=== PATIENT | female | born 1990 | race Caucasian/White ===

== ENCOUNTER 2018-12-09 16:50 | Emergency (ER) | payer OTHER ==
[2018-12-09 17:01] VITALS: BP 152/105
--- NOTE | 2018-12-09 17:32 | ED Physician Documentation ---
PD HPI SKIN - Stated complaint Stated Complaint: RASH - Chief complaint Chief Complaint: Wound - History obtained from History obtained from: Patient - History of Present Illness Timing - onset: Yesterday Timing - details: Abrupt onset (increase since yesterday of red itchy bumps left forearm proximal to upper arm. No diffuse pattern. No pustules nor vesicles. bumps are red without flat top but are pointed centers. not pustular.) Review of Systems Constitutional: denies: Fever, Chills, Myalgias GI: denies: Nausea, Vomiting, Diarrhea Skin: reports: Rash, Lesions PD PAST MEDICAL HISTORY - Past Medical History Past Medical History: No Cardiovascular: None Respiratory: None Neuro: None Endocrine/Autoimmune: None - Past Surgical History Past Surgical History: Yes - Present Medications Home Medications: Ambulatory Orders Medication Instructions Recorded Confirmed Doxycycline Hyclate 100 mg PO BID #20 capsule 12/09/18 Mupirocin 1 applic TP TID #15 g 12/09/18 diphenhydrAMINE [Benadryl] 25 mg PO Q4-6H PRN #20 capsule 12/09/18 - Allergies Allergies/Adverse Reactions: Allergies Allergy/AdvReac Type Severity Reaction Status Date / Time No Known Drug Allergies Allergy Verified 12/09/18 17:00 - Social History Does the pt smoke?: No Smoking Status: Never smoker - Immunizations Immunizations are current?: Yes PD ED PE NORMAL - Vitals Vital signs reviewed: Yes - General General: Alert and oriented X 3, No acute distress, Well developed/nourished - Neck Neck: Supple, no meningeal sign, No adenopathy - Cardiac Cardiac: RRR, No murmur - Respiratory Respiratory: Clear bilaterally - Derm Derm: Normal color, Warm and dry - Extremities Extremities: Other (left arm with red bumps above recent topical ointment use at recent tattoo. Got tattoo on left forearm few days ago. Was using A&D ointment to the tattoo. Has some scaling at the tattoo. Had not used that ointment before. now with red bumps just proximal to the tattoo and expanding proximally. Itchy bumps without pustules nor drainage. ) Results - Vitals Vitals: Oxygen O2 Source Room air PD MEDICAL DECISION MAKING - ED course Complexity details: considered differential (rash is itchy but continues to spread and has appearance of follicles redness and swelling without pustules nor abscesses. ), d/w patient Departure - Departure Disposition: 01 Home, Self Care Clinical Impression: Infectious folliculitis Condition: Stable Record reviewed to determine appropriate education?: Yes Instructions: ED Folliculitis Follow-Up: [facility] Mccormick [Provider Group] Prescriptions: diphenhydrAMINE [Benadryl] 25 mg PO Q4-6H PRN #20 capsule PRN Reason: Itching Doxycycline Hyclate 100 mg PO BID #20 capsule Mupirocin 1 applic TP TID #15 g Comments: Cleanse the area with soap and water gently. Apply mupirocin topical antibiotic to the main inflamed follicles area. Take oral doxycycline antibiotic twice a day for a week. You can use Benadryl if needed for itchiness every 4-6 hours. I think this looks more like an infectious folliculitis. It is potentially possible to be local allergy response and so the Benadryl and the dose of steroids we gave you here would help with that. Recheck if not improved over the next several days and return or recheck if this continues to spread. Discharge Date/Time: 12/09/18 18:16
[2018-12-09] MEDS ORDERED: CETIRIZINE 10 MG TABLET PO STA (17:43)
[2018-12-09] MEDS ORDERED: MUPIROCIN 2% OINT 1 GM TOP STA (17:43)
[2018-12-09] MEDS ORDERED: DOXYCYCLINE 100 MG TABLET PO STA (17:43)
[2018-12-09] MEDS ORDERED: DEXAMETHASONE 10 MG/ML VIAL PO STA (17:43)
[2018-12-09] MEDS ORDERED: CETIRIZINE 10 MG TABLET ONE (18:12)
== END 2018-12-09 18:16 | disposition home or self-care (01) ==
LOC: ED 16:50
DX: L73.8 Other specified follicular disorders (principal)
CPT/HCPCS: 99283; A9270

== ENCOUNTER 2019-12-11 16:57 | Emergency (ER) | payer OTHER ==
[2019-12-11 17:32] VITALS: BP 156/92
== END 2019-12-11 18:33 | disposition left against medical advice (07) ==
LOC: ED 16:57
DX: Z53.21 Procedure and treatment not carried out due to patient leaving prior to being seen by health care provider (principal)

== ENCOUNTER 2020-09-23 12:11 | Emergency (ER) | payer OTHER ==
[2020-09-23 12:18] VITALS: BP 160/90
--- NOTE | 2020-09-23 12:28 | ED Physician Documentation ---
History of Present Illness - Stated complaint Stated Complaint: SWOLLEN RT HAND, PAIN IN RT HAND - Chief complaint Chief Complaint: Ext Problem - History obtained from History obtained from: Patient - History of Present Illness Timing: How many days ago (3) - Additonal information Additional information: 30-year-old female presents to the emergency department with 3 days of right hand pain. She accidentally dropped a 30 pound kettle chavez on the hand. She has no deformity but has had persistent pain since. She does have some generalized ecchymosis on the dorsum of the hand. Patient is right-handed. No history of previous injury Review of Systems Constitutional: reports: Reviewed and negative Ears: reports: Reviewed and negative Nose: reports: Reviewed and negative Throat: reports: Reviewed and negative Cardiac: reports: Reviewed and negative Respiratory: reports: Reviewed and negative GI: reports: Reviewed and negative : reports: Reviewed and negative Skin: reports: Reviewed and negative Musculoskeletal: reports: Extremity pain (right hand) PD PAST MEDICAL HISTORY - Past Medical History Past Medical History: Yes Cardiovascular: None Respiratory: None Neuro: None Endocrine/Autoimmune: None - Past Surgical History Past Surgical History: Yes - Present Medications Home Medications: Ambulatory Orders Medication Instructions Recorded Confirmed Doxycycline Hyclate 100 mg PO BID #20 capsule 12/09/18 Mupirocin 1 applic TP TID #15 g 12/09/18 diphenhydrAMINE [Benadryl] 25 mg PO Q4-6H PRN #20 capsule 12/09/18 - Allergies Allergies/Adverse Reactions: Allergies Allergy/AdvReac Type Severity Reaction Status Date / Time No Known Drug Allergies Allergy Verified 09/23/20 12:14 - Social History Does the pt smoke?: No Smoking Status: Never smoker Does the pt drink ETOH?: No Does the pt have substance abuse?: No - Immunizations Immunizations are current?: Yes - POLST Patient has POLST: No PD ED PE EXPANDED - Extremities Extremities: Right hand (No swelling of the right hand though ecchymosis is present on the dorsum of the hand. 2+ distal radial pulse. Normal grasp and flexion and extension of hand and wrist against resistance. No deformity. Generalized tenderness of the metacarpals especially over the distal 3,4,5th) Results - Vitals Vitals: Vital Signs - 24 hr 09/23/20 12:14 Temperature 36.5 C Heart Rate 86 Respiratory 16 Rate Blood Pressure 160/90 H O2 Saturation 98 Oxygen O2 Source Room air - Rads (name of study) right hand Radiology: Final report received (No acute fracture or dislocation) PD MEDICAL DECISION MAKING - ED course Complexity details: reviewed results, re-evaluated patient, d/w patient ED course: 30 -year-old female presents to the emergency department for evaluation of acute right hand pain when she dropped a 30 pound kettle chavez on it 3 days ago. She has a very reassuring hand exam with the exception of some mild tenderness and ecchymosis on the dorsum. X-ray does not reveal any acute fractures or breaks. Patient was advised to ice the hand and continue to take an NSAID medication like ibuprofen. No work restrictions are necessary given normal movement and function. Emergent return precautions discussed Departure - Departure Disposition: 01 Home, Self Care Clinical Impression: Hand contusion Qualifiers: Encounter type: initial encounter Laterality: right Qualified Code(s): S60.221A - Contusion of right hand, initial encounter Condition: Stable Record reviewed to determine appropriate education?: Yes Instructions: ED Contusion Hand Ch Comments: Fidelia the x-ray of your hand does not show any broken bones. The bruising is suggestive of a contusion. I would recommend that you ice the hand once or twice a day and take [id number] medication like Tylenol or ibuprofen for discomfort. If your hand pain does not fully resolve after about 2 weeks it should be x-rayed again just to rule out any occult fractures.
--- NOTE | 2020-09-23 12:46 | XRAY Report ---
PROCEDURE: Hand 3 View RT INDICATIONS: pain and swelling after dropping cowbell on it TECHNIQUE: 3 views of the hand(s) acquired. COMPARISON: None FINDINGS: Bones: No fractures or dislocations. No suspicious bony lesions. Soft tissues: No suspicious soft tissue calcifications. IMPRESSION: No gross acute right hand fracture or dislocation. Reviewed by: Dario Gannon MD on 09/23/2020 11:44 AM [facility] Approved by: Dario Gannon MD on 09/23/2020 11:44 AM [facility] Station ID: [id number]
== END 2020-09-23 13:07 | disposition home or self-care (01) ==
LOC: ED 12:11
DX: S60.221A Contusion of right hand, initial encounter (principal); W20.8XXA Other cause of strike by thrown, projected or falling object, initial encounter
CPT/HCPCS: 99281; 99283